=== PATIENT | male | born 1970 | race Caucasian/White ===

== ENCOUNTER 2016-05-14 21:22 | Emergency (ER) | payer OTHER ==
[2016-05-14 23:42] VITALS: BP 147/90
== END 2016-05-14 23:42 | disposition home or self-care (01) ==
LOC: ED 21:22
DX: S01.21XA Laceration without foreign body of nose, initial encounter (principal); I10 Essential (primary) hypertension; X58.XXXA Exposure to other specified factors, initial encounter; Y93.89 Activity, other specified; Y92.89 Other specified places as the place of occurrence of the external cause; Y99.8 Other external cause status

== ENCOUNTER 2017-02-02 07:39 | Emergency (ER) | payer OTHER ==
[2017-02-02 08:54] LABS: BASOPHIL % 0.3 % (0-2); PLATELET COUNT 132 x10^3mcL (130-400); RED CELL DISTRIBUTION WIDTH 12.6 % (11.5-14.5)
[2017-02-02 08:57] LABS: CALCIUM 9.2 mg/dL (8.5-10.1); CARBON DIOXIDE 29.5 mmol/L (21-32); CHLORIDE SERUM 104 mmol/L (98-107); GFR1 > 60 mL/min; GLUCOSE SERUM 109 mg/dL (74-106); SODIUM SERUM 140 mmol/L (136-145)
[2017-02-02 09:01] LABS: ALBUMIN 4.2 g/dL (3.4-5.0); ALKALINE PHOSPHATASE 58 U/L (46-116); ALT/SGPT 42 U/L (16-63); AMYLASE 45 U/L (25-115); AST/SGOT 24 U/L (15-37); BILIRUBIN TOTAL 0.46 mg/dL (0.20-1.00); CHOLESTEROL 182 mg/dL (<200); HDL CHOLESTEROL 43 mg/dL (40-60); LIPASE 93 IU/L (73-393); MAGNESIUM 2.1 mg/dL (1.8-2.4); TOTAL PROTEIN, SERUM 7.9 g/dL (6.4-8.2)
[2017-02-02 10:29] LABS: microscopic required? YES; urine erythrocyte TRACE (NEGATIVE)
[2017-02-02 10:36] LABS: AMPHETAMINE QUAL UR NONE DETECTED (NEG <=1000)
[2017-02-02 12:32] VITALS: BP 131/81
== END 2017-02-02 12:32 | disposition home or self-care (01) ==
LOC: ED 07:39
PROVIDERS: Emergency Medicine
DX: R42 Dizziness and giddiness (principal); I10 Essential (primary) hypertension
CPT/HCPCS: 82962; 83880; 99406; G0480; J2550; J3411; J3475; J3490; J7030; J8597; Q0092

== ENCOUNTER → 2017-07-17 | Outpatient (CLI) | payer OTHER ==
[2017-07-17 10:00] LABS: BASOPHIL % 0.2 % (0-2); PLATELET COUNT 136 x10^3mcL (130-400); RED CELL DISTRIBUTION WIDTH 12.7 % (11.5-14.5)
[2017-07-17 10:08] LABS: ALBUMIN 3.9 g/dL (3.4-5.0); ALKALINE PHOSPHATASE 56 U/L (46-116); ALT/SGPT 38 U/L (16-63); AST/SGOT 18 U/L (15-37); BILIRUBIN TOTAL 0.46 mg/dL (0.20-1.00); CALCIUM 8.7 mg/dL (8.5-10.1); CARBON DIOXIDE 32.5 mmol/L (21-32); CHLORIDE SERUM 106 mmol/L (98-107); CHOLESTEROL 164 mg/dL (<200); CHOLESTEROL/HDL RATIO 4.4; CREATININE SERUM 0.8 mg/dL (0.7-1.3); GFR1 > 60 mL/min; GLUCOSE SERUM 113 mg/dL (74-106); HDL CHOLESTEROL 37 mg/dL (40-60); MAGNESIUM 2.1 mg/dL (1.8-2.4); PHOSPHOROUS 3.3 mg/dL (2.5-4.9); POTASSIUM SERUM 3.8 mmol/L (3.5-5.1); SODIUM SERUM 141 mmol/L (136-145); TOTAL PROTEIN, SERUM 7.2 g/dL (6.4-8.2)
[2017-07-17 10:11] LABS: TRIGLYCERIDES 213 mg/dL (<150)
[2017-07-17 10:47] LABS: T3 TOTAL 0.98 ng/mL
[2017-07-17 10:48] LABS: FREE T4 1.03 ng/dL (0.76-1.46); FREE THYROXINE INDEX 3.2 ug/dL (1.4-4.5); T4(THYROXINE) 9.2 ug/dL (4.7-13.3)
== END | disposition home or self-care (01) ==
LOC: LB 09:15
PROVIDERS: Family Medicine
DX: M25.562 Pain in left knee (principal); I10 Essential (primary) hypertension
CPT/HCPCS: 84439

== ENCOUNTER 2018-01-17 09:53 | Emergency (ER) | payer OTHER ==
[~2018-01-17] VITALS: Ht 175.3 cm; Wt 90.7 kg
[2018-01-17 09:58] VITALS: Ht 175.3 cm; Wt 90.7 kg
[2018-01-17 10:58] LABS: BASOPHIL % 0.2 % (0-2); PLATELET COUNT 148 x10^3mcL (130-400); RED CELL DISTRIBUTION WIDTH 12.5 % (11.5-14.5)
[2018-01-17 11:04] LABS: ALKALINE PHOSPHATASE 63 U/L (46-116); ALT/SGPT 35 U/L (16-63); AST/SGOT 10 U/L (15-37); BILIRUBIN TOTAL 0.38 mg/dL (0.20-1.00); CALCIUM 8.7 mg/dL (8.5-10.1); CARBON DIOXIDE 29.3 mmol/L (21-32); CHLORIDE SERUM 105 mmol/L (98-107); CHOLESTEROL 151 mg/dL (<200); CREATININE SERUM 0.9 mg/dL (0.7-1.3); GFR1 > 60 mL/min; GLUCOSE SERUM 117 mg/dL (74-106); HDL CHOLESTEROL 38 mg/dL (40-60); SODIUM SERUM 140 mmol/L (136-145); TOTAL PROTEIN, SERUM 7.6 g/dL (6.4-8.2)
[2018-01-17 12:30] LABS: AMPHETAMINE QUAL UR NONE DETECTED (See below)
[2018-01-17 14:05] VITALS: BP 140/85
== END 2018-01-17 14:05 | disposition home or self-care (01) ==
LOC: ED 09:53
PROVIDERS: Emergency Medicine
DX: T51.91XA Toxic effect of unspecified alcohol, accidental (unintentional), initial encounter (principal); R11.2 Nausea with vomiting, unspecified; R00.2 Palpitations; R42 Dizziness and giddiness; I10 Essential (primary) hypertension; Z98.890 Other specified postprocedural states; Y92.89 Other specified places as the place of occurrence of the external cause
CPT/HCPCS: G0480; J2405; J3411; J3475; J3490; J7030; J8597; Q0092

== ENCOUNTER → 2018-06-03 | Outpatient (CLI) | payer OTHER ==
[2018-06-03 09:38] LABS: microscopic required? NO
[2018-06-03 10:01] LABS: BASOPHIL % 0.2 % (0-2); PLATELET COUNT 133 x10^3mcL (130-400); RED CELL DISTRIBUTION WIDTH 12.7 % (11.5-14.5)
[2018-06-03 10:03] LABS: ALBUMIN 4.1 g/dL (3.4-5.0); ALKALINE PHOSPHATASE 55 U/L (46-116); ALT/SGPT 36 U/L (16-63); AST/SGOT 11 U/L (15-37); CALCIUM 8.8 mg/dL (8.5-10.1); CARBON DIOXIDE 30.4 mmol/L (21-32); CHLORIDE SERUM 104 mmol/L (98-107); CHOLESTEROL 186 mg/dL (<200); CHOLESTEROL/HDL RATIO 5.3; CREATININE SERUM 0.8 mg/dL (0.7-1.3); GFR1 > 60 mL/min; GLUCOSE SERUM 111 mg/dL (74-106); HDL CHOLESTEROL 35 mg/dL (40-60); MAGNESIUM 2.1 mg/dL (1.8-2.4); POTASSIUM SERUM 3.8 mmol/L (3.5-5.1); SODIUM SERUM 139 mmol/L (136-145); TOTAL PROTEIN, SERUM 7.4 g/dL (6.4-8.2)
[2018-06-03 10:04] LABS: TRIGLYCERIDES 385 mg/dL (<150)
[2018-06-03 10:28] LABS: UA SPECIFIC GRAVITY 1.015 (1.005-1.035); urine erythrocyte NEGATIVE (NEGATIVE)
== END | disposition home or self-care (01) ==
LOC: LB 09:17
PROVIDERS: Family Medicine
DX: I10 Essential (primary) hypertension (principal); K21.9 Gastro-esophageal reflux disease without esophagitis; R39.15 Urgency of urination
CPT/HCPCS: 84153; 84439

== ENCOUNTER 2018-08-21 06:43 | Day surgery (SDC) | payer OTHER ==
[2018-08-14 11:46] LABS: BASOPHIL % 0.1 % (0-2); PLATELET COUNT 143 x10^3mcL (130-400); RED CELL DISTRIBUTION WIDTH 12.7 % (11.5-14.5)
[2018-08-14 11:52] LABS: CALCIUM 9.3 mg/dL (8.5-10.1); CARBON DIOXIDE 33.2 mmol/L (21-32); CHLORIDE SERUM 105 mmol/L (98-107); CHOLESTEROL 171 mg/dL (<200); CHOLESTEROL/HDL RATIO 4.8; CREATININE SERUM 0.8 mg/dL (0.7-1.3); GFR1 > 60 mL/min; GLUCOSE SERUM 85 mg/dL (74-106); HDL CHOLESTEROL 36 mg/dL (40-60); POTASSIUM SERUM 4.1 mmol/L (3.5-5.1); SODIUM SERUM 140 mmol/L (136-145)
[2018-08-14 11:54] LABS: TRIGLYCERIDES 263 mg/dL (<150)
[~2018-08-21] VITALS: Ht 175.3 cm; Wt 91.2 kg
[2018-08-21 07:10] VITALS: BP 142/96
[2018-08-21 14:04] VITALS: BP 126/80
== END 2018-08-21 12:00 | disposition home or self-care (01) ==
LOC: OR → DS 06:43 → OR 08:30 → DS 09:30
PROVIDERS: Ophthalmology
DX: H11.0 Pterygium of eye (principal); I10 Essential (primary) hypertension; Z98.890 Other specified postprocedural states; Z79.899 Other long term (current) drug therapy; Z85.828 Personal history of other malignant neoplasm of skin
CPT/HCPCS: J2001; J2250; J2704; J3010; J3490; J7040; V2790

== ENCOUNTER → 2019-02-04 | Outpatient (CLI) | payer OTHER ==
[2019-02-04 09:49] LABS: BASOPHIL % 0.1 % (0-2); PLATELET COUNT 139 x10^3mcL (130-400); RED CELL DISTRIBUTION WIDTH 12.9 % (11.5-14.5)
[2019-02-04 09:56] LABS: UA SPECIFIC GRAVITY 1.025 (1.005-1.035); microscopic required? YES; urine erythrocyte TRACE (NEGATIVE)
[2019-02-04 10:00] LABS: ALBUMIN 4.2 g/dL (3.4-5.0); ALKALINE PHOSPHATASE 62 U/L (46-116); ALT/SGPT 38 U/L (16-63); AST/SGOT 12 U/L (15-37); BILIRUBIN TOTAL 0.68 mg/dL (0.20-1.00); CALCIUM 9.5 mg/dL (8.5-10.1); CARBON DIOXIDE 31.3 mmol/L (21-32); CHLORIDE SERUM 103 mmol/L (98-107); CHOLESTEROL 193 mg/dL (<200); CHOLESTEROL/HDL RATIO 4.7; CREATININE SERUM 0.9 mg/dL (0.7-1.3); GFR1 > 60 mL/min; GLUCOSE SERUM 108 mg/dL (74-106); HDL CHOLESTEROL 41 mg/dL (40-60); SODIUM SERUM 139 mmol/L (136-145); TOTAL PROTEIN, SERUM 7.7 g/dL (6.4-8.2); TRIGLYCERIDES 175 mg/dL (<150)
== END | disposition home or self-care (01) ==
LOC: LB 09:12
DX: Z00.00 Encounter for general adult medical examination without abnormal findings (principal)

== ENCOUNTER → 2019-12-20 | Outpatient (CLI) | payer OTHER ==
[2019-12-20 11:03] LABS: microscopic required? NO
[2019-12-20 11:28] LABS: urine erythrocyte NEGATIVE (NEGATIVE)
[2019-12-20 11:42] LABS: ALKALINE PHOSPHATASE 59 U/L (46-116); ALT/SGPT 21 U/L (16-63); AST/SGOT 11 U/L (15-37); BILIRUBIN TOTAL 0.78 mg/dL (0.20-1.00); CARBON DIOXIDE 29.8 mmol/L (21-32); CHLORIDE SERUM 103 mmol/L (98-107); CHOLESTEROL 168 mg/dL (<200); CHOLESTEROL/HDL RATIO 4.2; CREATININE SERUM 0.9 mg/dL (0.7-1.3); GLUCOSE SERUM 102 mg/dL (74-106); HDL CHOLESTEROL 40 mg/dL (40-60); POTASSIUM SERUM 4.1 mmol/L (3.5-5.1); SODIUM SERUM 137 mmol/L (136-145); TOTAL PROTEIN, SERUM 7.4 g/dL (6.4-8.2); TRIGLYCERIDES 188 mg/dL (<150)
[2019-12-20 11:47] LABS: BASOPHIL % 0.2 % (0-2); PLATELET COUNT 139 x10^3mcL (130-400); RED CELL DISTRIBUTION WIDTH 12.8 % (11.5-14.5)
[2019-12-20 12:39] LABS: GFR1 > 60 mL/min
== END | disposition home or self-care (01) ==
LOC: LB 10:02
DX: Z00.00 Encounter for general adult medical examination without abnormal findings (principal); E55.9 Vitamin D deficiency, unspecified; I10 Essential (primary) hypertension
CPT/HCPCS: 84153; G0480